=== PATIENT | female | born 1955 | race Caucasian/White ===

== ENCOUNTER 2017-08-07 09:22 | Inpatient (IN) | payer OTHER ==
[2017-07-20 15:16] LABS: % IMMATURE GRANULYOCYTES 0.4 % (0.0-1.1); ABSOLUTE IMMATURE GRANULOCYTES 0.03 10^3/uL (0.00-0.10); ADD DIFF? NO; ADD MORPH? NO; ADD SCAN? NO; ATYPICAL LYMPHOCYTE FLAG 0 (0-99); FRAGMENT RBC FLAG 0 (0-99); HEMATOCRIT 40.5 % (38.0-47.0); HEMOGLOBIN 13.4 g/dL (12.6-16.3); LEFT SHIFT FLG 0 (0-99); LIPEMIA HEMOLYSIS FLAG 80 (0-99); MEAN CELL HEMOGLOBIN 31.2 pg (27.9-34.1); MEAN CELL HEMOGLOBIN CONCENTR. 33.1 g/dL (32.4-36.7); MEAN CELL VOLUME 94.4 fL (81.5-99.8); MEAN PLATELET VOLUME 10.8 fL (8.7-11.7); PLATELET CLUMPS FLAG 0 (0-99); PLATELET COUNT 200 10^3/uL (150-400); RED BLOOD CELL COUNT 4.29 10^6/uL (4.18-5.33); RED CELL DISTRIBUTION WIDTH 11.8 % (11.5-15.2)
--- NOTE | 2017-08-09 06:51 | PDHPUP ---
History & Physical Update H&P update statement: This history and physical update is based on an assessment of the patient which was completed after admission or registration (within 24 hours), but prior to the surgery/procedure. H&P update: H&P reviewed & patient examined, no change in patient's condition since H&P completed
[2017-08-09] MEDS ORDERED: BUPIVACAINE 0.25% 30 ML SDV ONE (12:01)
[2017-08-09] MEDS ORDERED: THROMBIN (BOVINE) 5,000 UNIT VIAL TP ONE (12:01)
[2017-08-09] MEDS ORDERED: BACITRACIN 50,000 UNITS/10 ML SYR IRR ONE (12:02)
[2017-08-09] MEDS ORDERED: ceFAZolin 2 GM/DEXTROSE 100 ML IV ONE (12:15)
[2017-08-09] MEDS ORDERED: LIDOCAINE 1% 2 ML INJ ID PRN (12:16)
[2017-08-09] MEDS ORDERED: LR 1,000 ML IV ONE (12:16)
[2017-08-09] MEDS ORDERED: MIDAZOLAM 2 MG/2 ML VIAL ONE (12:41)
[2017-08-09] MEDS ORDERED: MIDAZOLAM 2 MG/2 ML VIAL IVP ONE (12:43)
--- NOTE | 2017-08-09 12:43 | PDANEPAE ---
ANE History of Present Illness TLIF L5-s1 ANE Past Medical History - Cardiovascular History Hx Hypertension: No Hx Arrhythmias: No Hx Chest Pain: No Hx Coronary Artery / Peripheral Vascular Disease: No Hx CHF / Valvular Disease: No Hx Palpitations: No Cardiovascular History Comment: SVT -no ablation-changes life style to decrease stress- no recent SVT. Dr Staley F/José Manuel '15-'16. - Pulmonary History Hx COPD: No Hx Asthma/Reactive Airway Disease: No Hx Recent Upper Respiratory Infection: No Hx Oxygen in Use at Home: No Hx Sleep Apnea: No Sleep Apnea Screening Result - Last Documented: Negative Pulmonary History Comment: pneumonia x2 - Neurologic History Hx Cerebrovascular Accident: No Hx Seizures: No Hx Dementia: No - Endocrine History Hx Diabetes: No Hypothyroid: Yes Endocrine History Comment: hypothyroid - Renal History Hx Renal Disorders: No - Liver History Hx Hepatic Disorders: No - Neurological & Psychiatric Hx Hx Neurological and Psychiatric Disorders: Yes Neurological / Psychiatric History Comment: Excruciating low back pain alternates w/stabbing pain down L buttock and nerve pain to L foot. on Lexapro - small dose to help bowel issue/"leaky gut" - Cancer History Hx Cancer: No - Congenital Disorder History Hx Congenital Disorders: No - GI History GERD: no Hx Gastrointestinal Disorders: Yes Gastrointestinal History Comment: "leaky gut" on supplements, probiotic - Other Health History Other Health History: canker sores can come w/digestive issues-none recent. - Chronic Pain History Chronic Pain: Yes (back,) - Surgical History Prior Surgeries: L knee scope '14. uterus removal '04. R knee scope '98. R knee sx-patellar tendon '. R knee manipulation'. R knee reconstruction( cast 3 mos) '73. ruptured ovarian cysts x2 '71. tonsillectomy '56 ANE Review of Systems Review of Systems: - Exercise capacity METS (RN): 4 METS ANE Patient History - Allergies Allergies/Adverse Reactions: No Known Allergies Allergy (Verified 07/18/17 11:44) - Home Medications Home Medications: Murphy Thyroid 82mg 82 mg PO DAILY 07/17/17 [Last Taken 08/09/17] Ascorbic Acid [Vitamin C 500 mg (*)] 1,000 mg PO DAILY 07/17/17 [Last Taken ] Aspirin [Aspirin 81mg (*)] 162 mg PO DAILY 07/17/17 [Last Taken 07/19/17] Biest Compounded Crm 3 gm TP DAILY 07/17/17 [Last Taken 08/08/17] Cyanocobalamin [Vitamin B12 (*)] 5,000 mcg PO DAILY 07/17/17 [Last Taken ] Escitalopram Oxalate [Lexapro] 2.5 mg PO HS 07/17/17 [Last Taken 08/08/17 20:00] Herbals/Supplements -Info Only 1 ea PO DAILY 07/17/17 [Last Taken 08/05/17] Niacin [Niacin 500 mg (*)] 500 mg PO DAILY 07/17/17 [Last Taken 08/02/17] Progesterone, Micronized [Progesterone] 100 mg PO HS 07/17/17 [Last Taken ] Testosterone Compounded Crm 1 yuri TP DAILY 07/17/17 [Last Taken 08/09/17] traMADol [Ultram 50 mg (*)] 50 - 100 mg PO Q6HRS PRN 07/17/17 [Last Taken 16:00] - Anes Hx Anes Hx: no prior problems - Smoking Hx Smoking Status: Former smoker - Family Anes Hx Family Anes Hx: none ANE Labs/Vital Signs - Labs Result Diagrams: 07/20/17 14:42 - Vital Signs Blood Pressure: 140/73 Heart Rate: 99 Respiratory Rate: 16 O2 Sat (%): 97 Height: 167.01 cm Weight: 54.431 kg ANE Physical Exam - Airway Neck exam: FROM Mallampati Score: Class 1 Mouth exam: normal dental/mouth exam - Pulmonary Pulmonary: clear to auscultation - Cardiovascular Cardiovascular: regular rate and rhythym - ASA Status ASA Status: II ANE Anesthesia Plan Anesthesia Plan: general endotracheal anesthesia
[2017-08-09] MEDS ORDERED: KETAMINE 100 MG/10 ML SYR ONE (12:45)
[2017-08-09] MEDS ORDERED: fentaNYL 100 MCG/2 ML INJ ONE ×3 (12:45→17:39)
[2017-08-09] MEDS ORDERED: PROPOFOL/EMULSION 500 MG/50 ML BOTTLE IV ONE (12:46)
[2017-08-09] MEDS ORDERED: ROCURONIUM 50 MG/5 ML VIAL ONE (12:48)
[2017-08-09] MEDS ORDERED: DEXAMETHASONE 4 MG/ML VIAL ONE (12:48)
[2017-08-09] MEDS ORDERED: traMADol 50 MG TAB PO PRN (12:56)
[2017-08-09] MEDS ORDERED: POLYETHYLENE GLYCOL 3350 17 GM PKT PO PRN (13:00)
[2017-08-09] MEDS ORDERED: HYDROmorphONE/DILAUDID 6 MG/30 ML PCA IV PRN (13:00)
[2017-08-09] MEDS ORDERED: MAGNESIUM HYDROXIDE 30 ML UDCUP PO PRN (13:00)
[2017-08-09] MEDS ORDERED: NS 1,000 ML IV SCH (13:00)
[2017-08-09] MEDS ORDERED: BISACODYL 10 MG SUPP PR PRN (13:00)
[2017-08-09] MEDS ORDERED: NALOXONE HCL 0.4 MG/ML INJ IVP PRN (13:00)
[2017-08-09] MEDS ORDERED: diphenhydrAMINE 25 MG CAP PO PRN (13:00)
[2017-08-09] MEDS ORDERED: ONDANSETRON 4 MG/2 ML VIAL IVP PRN (13:00)
[2017-08-09] MEDS ORDERED: ONDANSETRON DISINTEGRATING 4 MG TAB PO PRN (13:00)
[2017-08-09] MEDS ORDERED: LACTULOSE 20 GM/30 ML UDCUP PO PRN (13:00)
[2017-08-09] MEDS ORDERED: PHENYLEPHRINE HCL 100 MCG/ML SYR ONE (14:03)
[2017-08-09] MEDS ORDERED: PROPOFOL 200 MG/20 ML VIAL ONE (15:40)
[2017-08-09] MEDS ORDERED: ONDANSETRON 4 MG/2 ML VIAL ONE (16:27)
[2017-08-09] MEDS ORDERED: fentaNYL 100 MCG/2 ML INJ IVP PRN (17:00)
--- NOTE | 2017-08-09 17:01 | SOAPPROG ---
SOAP Progress Note Assessment/Plan: Post Op Visit: S: Awake and alert. NAD. Pt with expected lower back pain O: AFVSS/PERRLA/EOMI no droop CN 2-12 grossly intact +lt touch 5/5 BUE/BLE = CDI REZA in place A/P: 62 yo female that is s/p TLIF at L5/S1 for LLE pain and LBP -orders in place -call with any questions or concerns -pt seen by Dr Cervantes as well -admit to floor -brace when out of bed 08/09/17 16:54 Objective: Vital Signs Temp Pulse Resp BP Pulse Ox 37.3 C 99 16 140/73 H 97 08/09/17 12:32 08/09/17 12:42 08/09/17 12:42 08/09/17 12:42 08/09/17 12:42 Laboratory Results 07/20/17 14:42 ICD10 Worksheet Patient Problems: Problems Problem Status Onset Arthrodesis status Acute Lumbar radicular pain Acute Lumbar stenosis Acute - ICD10 Problem Qualifiers (1) Lumbar stenosis (2) Lumbar radicular pain (3) Arthrodesis status
[2017-08-09] MEDS ORDERED: HYDROmorphONE/DILAUDID 1 MG/ML INJ ONE ×2 (17:05→17:40)
[2017-08-09] MEDS: HYDROmorphONE/DILAUDID 1 MG/ML INJ IVP PRN ×4 (17:06→18:12)
--- NOTE | 2017-08-09 17:48 | POSTANESTH ---
Post Anesthetic Evaluation Cardiovascular Status: Normal, Stable Respiratory Status: Normal, Stable Level of Consciousness/Mental Status: Can Participate in Eval Pain Control: Adequate, Prn Tx Ordered Nausea/Vomiting Control: Adequate, Prn Tx Ordered Complications Possibly Related to Anesthesia: None Noted
[2017-08-09] MEDS ORDERED: HYDROCODONE/APAP 5/325 TAB ONE (18:14)
[2017-08-09] MEDS: HYDROCODONE/APAP 5/325 TAB PO PRN ×3 (18:14→22:57)
[2017-08-09] MEDS: SENNOSIDES/DOCUSATE SODIUM TAB PO SCH (20:23)
[2017-08-09] MEDS: PROGESTERONE,MICR 100 MG CAP PO SCH (20:23)
[2017-08-09] MEDS: FAMOTIDINE 20 MG TAB PO SCH (20:23)
[2017-08-09] MEDS: ACETAMINOPHEN 500 MG TAB PO SCH ×2 (20:28→23:27)
[2017-08-09] MEDS: ESCITALOPRAM OXALATE 5 MG PO SCH (22:49)
[2017-08-09] MEDS: ceFAZolin 2 GM/DEXTROSE 100 ML IV SCH (22:50)
[2017-08-09] MEDS: METHOCARBAMOL 750 MG TAB PO PRN (22:58)
--- NOTE | 2017-08-10 04:24 | GOP ---
[f rep st] OPERATIVE REPORT DATE OF OPERATION: 08/09/2017 SURGEON: Bear Cervantes MD SHADOWGRAPH SCALE OPERATOR: Cain Prajapati PA-C. PREOPERATIVE DIAGNOSIS: Left-sided pars interarticularis defect i.e., spondylolisthesis of L5 on the left with a rotational spondylolisthesis of L5 on S1, left L5 radiculopathy. POSTOPERATIVE DIAGNOSIS: Left-sided pars interarticularis defect i.e., spondylolisthesis of L5 on th e left with a rotational spondylolisthesis of L5 on S1, left L5 radiculopathy. PROCEDURE PERFORMED: Posterior lateral and intervertebral arthrodesis L5-S1 with resection of the ab normal pars interarticularis on the left-hand side only. The right-hand pars was intact, with decomp ression and arthrodesis same level L5-S1 (52666), posterior nonsegmental instrumentation across a sin gle interspace L5-S1 (92921), spinal stereotaxy, same incision bone graft harvest, microscope, placem ent of biomechanical intervertebral device L5-S1, utilization of 2.0 mg of bone morphogenic protein. FINDINGS: ESTIMATED BLOOD LOSS: 100 cc. INDICATIONS: The patient is a 62-year-old with chronic low back pain and radiating pain into the lef t leg in an L5 distribution. Imaging demonstrated a defect in the left L5 pars interarticularis with a rotational spondylolisthesis that was worse on the left than on the right at that level. The righ t-sided pars interarticularis appeared to be intact. She had left-sided symptoms only. She failed c onservative management and was having worsening pain disrupting her activities of daily living, and s he wanted to proceed with surgery. The risk of screw and hardware malposition and malfunction were d iscussed. She knew there was risk of ongoing symptoms and chronic nerve damage. She knew there was risk that surgery would fail to alleviate her pain. There was a risk of pseudoarthrosis, future spin e surgery, revision spine surgery, spinal fluid leak. 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 These were well-known to us preoperatively, and these had the slight possibility of increasing her risk of spinal fluid leak. She wanted to proceed despite the risks. DESCRIPTION OF PROCEDURE: The patient was taken the operating room, placed in supine position. Gene ral anesthesia was begun. She was sterilely prepped and draped. We made a midline incision after an esthetizing the paraspinal muscles with 0.25% Marcaine. The subcutaneous tissue was dissected using Bovie cautery. Our incision was somewhat longer than it would normally be. We exposed the transvers e process of L4 and then L5. We wanted to stay away from the sacrum itself because the sacrum, and a large exophytic Tarlov cyst coming through the dorsal portion of the sacrum, and it was unclear whet her the bone was intact in this region. We wanted to avoid the cyst. We only exposed the very rostr al arch of the sacrum itself. We shot many localizing x-rays as we got close to the sacrum to ensure we were in the right location. We then denuded the bilateral L5-S1 facet joints to create arthrodes is on the left-hand side. We could appreciate the pars defect on the left. The pars on the right ap peared to be intact. We then marked our entry site for pedicle screws and decorticated the transvers e processes of L5 and the sacral ala. We then used a tested Stealth reference frame and then perform ed an O-arm spin. Using frameless Stealth stereotaxy, we placed pedicle screws bilaterally at the sa gina and at L5. We used 6.5 mm screws in each location. The pedicle trajectories were rather short, but we were able to get screws into the pedicles without difficulty. On the right-hand side; emiliano r, the right L5 pedicle there was a lot of cortical bone, and I felt that we could begin the screw so mewhat more medial on the right-hand side, and use this cortical bone for greater bony purchase. In this instance, I felt a 5.5 mm screw was advisable. We drilled a small airline pilot hole, and on the right- hand side at L5 alone, we used the spinal probe to make our airline pilot hole as opposed to the other ones w here we used the power drill. Here, we did it an old fashioned way using stealth guidance. There wa s an excellent cortical tract through the pedicle. We then placed 4 pedicle screws without difficult y. The all stimulated at acceptable levels. We performed an O-arm spin, and they were all in excell ent position without breach of the pedicles themselves. We chose 30 mm rods, placed them down on eac h side. Distracted slightly between L5 and S1, and this reduced the spondylolisthesis 1 mm or 2. We final tightened the cap screws according to company specification. We did not radically distract at L5-S1. We removed all the soft tissue of the bone from L5, harvested the L5 inferior spinous proces s. We then drilled the left L5 lamina completely away and harvested this for autologous grafting pur poses. The operating microscope was introduced. We opened the ligamentum flavum and began working c entrally, and then worked our way to the left-hand side at L5-S1 and in the foramen. The S1 nerve ro ot was identified. We decompressed the S1 root, and then worked our way over from the S1 pedicle off into the foramen and out toward the L5 pedicle. There was indeed a pars defect. We removed the abn ormal pars interarticularis. We decorticated the bone on the other side of the defect at the site of the L5 pedicle itself. There was like an isthmic spondylolisthesis. There was an isthmus of bone a nd tissue over the L5 root, and it was indeed being completely crushed. We used a 3 mm Kerrison to r emove this shelf of bone over the 5 root, and this released the nerve root. We decompressed it all t he way into the neural foramen. Then interestingly coming out of the L5-S1 disk was a chronic large bone spur out in the neural foramen. This is also seen on our O-arm spin, and could be seen on the M RI as well, but it was more clearly calcified on the O-arm spin. We incised the L5-S1 disk, removed the disk and the cartilaginous endplates. We roughened the subchondral bone to create arthrodesis at L5-S1, but then we spent additional time decompressing the exiting L5 root. We protected the root w ith a ball-tipped probe, and then took a down-biting curette, and then using a mallet we fractured th is large osteophyte coming off the L5 vertebral body, down into the L5-S1 disk, and removed this larg e bony fragment. We then decorticated the subchondral bone for our arthrodesis and chose a 7 x 23 mm device after sizing it with our trial. We inserted a 7 x 23 mm device along with bone autograft, an d we used 1.0 mg of BMP in the disk space. A nice fit was obtained. We expanded our device in the L 5-S1 disk space and it seated quite nicely. We then decorticated all the remaining bone at L5-S1 to create arthrodesis. Placed bone and bone morphogenic protein posterolaterally bilaterally. A total of 1 mg was placed posterior laterally, followed by bone autograft. We then placed a subfascial drai n, and then closed the incision in multiple layers using Vicryl sutures. Steri-Strips were applied t o the skin. The patient was reversed from anesthesia, extubated, and transferred to recovery room in stable condition. There were no complications. She tolerated the procedure well. COMPLICATIONS: None. INSTRUMENTATION USED: [employer] 4.75 mm Solera system with a 7 x 23 mm Elevate cage. We used 2.0 mg of bone morphogenic protein. /[id number]/MODL
[2017-08-10] MEDS: METHOCARBAMOL 750 MG TAB PO PRN ×3 (04:39→14:15)
[2017-08-10] MEDS: ceFAZolin 2 GM/DEXTROSE 100 ML IV SCH (04:39)
[2017-08-10] MEDS: HYDROCODONE/APAP 5/325 TAB PO PRN ×2 (04:39→08:42)
[2017-08-10] MEDS: ACETAMINOPHEN 500 MG TAB PO SCH ×3 (04:43→22:47)
[2017-08-10] MEDS ORDERED: DIAZEPAM 5 MG TAB PO PRN (08:13)
--- NOTE | 2017-08-10 08:18 | NEUSURGPN ---
Date of Surgery: 08/09/17 Post Op Day: 1 Assessment/Plan: Assessment: 62 yo female that is s/p TLIF at L5/S1 for LLE pain and LBP Plan: -s/p TLIF L5/S1-pt with some lower back pain, LLE better -REZA in place and to be removed later today -PT/OT ordered and pending -brace fit and to wear when out of bed -call with any questions or concerns -post op xrays pending -pt seen by Dr Cervantes as well -plan for dc in next 1-2 days 08/09/17 16:54 Subjective: Awake and alert. NAD. Eating/drinking and voiding. No f/c/n/v/d. No other complaints or concerns. Objective: AFVSS/PERRLA/EOMI no droop CN 2-12 grossly intact +lt touch 5/5 BUE/BLE = CDI REZA in place Neuro Check Frequency: per routine Urinary Catheter in Place: No - Physician Discussed Patient with Dr.: Billy Patient Seen by : Billy Neurosurgery Physical Exam - Vitals, I&O, Labs I and O 08/09/17 08/10/17 08/11/17 05:59 05:59 05:59 Intake Total 2220 Output Total 2340 Balance -120 Weight 54.431 kg Intake: IV Intake (ml) 1000 IV Infused (ml) 1220 Ns 1,000 ml @ 100 mls/hr 1000 IV CONT LOLA Rx#: [id number] ceFAZolin 2 GM/DEXTROSE 220 100 ml @ 200 mls/hr IV Q8HRS LOLA Rx#:[id number] Output: Urine (ml) 2125 Bedside Commode 2125 Estimated Blood Loss (ml) 100 REZA Drain Output (ml) 115 Left Back [place] 115 Other: Intake Quantity Yes Sufficient Number of Voids Bedside Commode 1 Vital Signs Temp Pulse Resp BP Pulse Ox 37.1 C 94 16 121/70 H 96 08/10/17 07:11 08/10/17 07:11 08/10/17 07:11 08/10/17 07:11 08/10/17 07:11 Laboratory Results 07/20/17 14:42 ICD10 Worksheet Patient Problems: Problems Problem Status Onset Arthrodesis status Acute Lumbar radicular pain Acute Lumbar stenosis Acute - ICD10 Problem Qualifiers (1) Lumbar stenosis (2) Lumbar radicular pain (3) Arthrodesis status
[2017-08-10] MEDS: SENNOSIDES/DOCUSATE SODIUM TAB PO SCH ×2 (09:39→20:19)
[2017-08-10] MEDS: NIACIN 500 MG TAB PO SCH (09:39)
[2017-08-10] MEDS: FAMOTIDINE 20 MG TAB PO SCH ×2 (09:43→20:19)
[2017-08-10] MEDS: CYANO/VITAMIN B12 1000 MCG TAB PO SCH (09:43)
[2017-08-10] MEDS: THYROID PO SCH (09:44)
[2017-08-10] MEDS: [UNRECOGNIZED DRUG - OTHER] TP SCH (09:45)
[2017-08-10] MEDS: [UNRECOGNIZED DRUG - OTHER] TP SCH (09:45)
--- NOTE | 2017-08-10 14:13 | ASMTCMCOM ---
CM Note CM Note Notes: Pt had planned spinal surgery. OT/PT clear pt for home. No CM d/c needs identified at this time. Anticipate pt will d/c when medically stable. CM available for changes/needs. Date Signed: 08/10/2017 02:12 PM Electronically Signed By:LAKSHMI Mondragon
[2017-08-10] MEDS: oxyCODONE IR 5 MG TAB PO PRN ×2 (14:14→20:20)
[2017-08-10] MEDS: PROGESTERONE,MICR 100 MG CAP PO SCH (20:19)
[2017-08-10] MEDS: ESCITALOPRAM OXALATE 5 MG PO SCH (20:19)
[2017-08-11] MEDS: ACETAMINOPHEN 500 MG TAB PO SCH (06:13)
[2017-08-11] MEDS: oxyCODONE IR 5 MG TAB PO PRN ×2 (06:14→10:48)
[2017-08-11] MEDS: METHOCARBAMOL 750 MG TAB PO PRN (06:14)
[2017-08-11 07:13] VITALS: BP 109/51; PULSE 78; RESP 16; TEMP 99; O2SAT 92
[2017-08-11] MEDS: SENNOSIDES/DOCUSATE SODIUM TAB PO SCH (08:28)
[2017-08-11] MEDS: FAMOTIDINE 20 MG TAB PO SCH (08:29)
[2017-08-11] MEDS: CYANO/VITAMIN B12 1000 MCG TAB PO SCH (08:29)
[2017-08-11] MEDS: THYROID PO SCH (08:30)
[2017-08-11] MEDS: [UNRECOGNIZED DRUG - OTHER] TP SCH (08:31)
[2017-08-11] MEDS: [UNRECOGNIZED DRUG - OTHER] TP SCH (08:31)
[2017-08-11] MEDS: NIACIN 500 MG TAB PO SCH (08:32)
--- NOTE | 2017-08-11 08:43 | NEUSURGPN ---
Date of Surgery: 08/09/17 Post Op Day: 2 Assessment/Plan: Assessment: 62 yo female that is s/p TLIF at L5/S1 for LLE pain and LBP Plan: -Patient may discharge home later today pending PT/OT recommendations -PT/OT -Wear brace when out of bed -post op xrays stable -pt seen by Dr Cervantes as well -Call with any questions/concerns Subjective: Patient feeling pretty good Objective: PERRLA/EOMI no droop CN 2-12 grossly intact +lt touch 5/5 BUE/BLE = CDI Neuro Check Frequency: per routine Urinary Catheter in Place: No - Physician Discussed Patient with Dr.: Billy Patient Seen by : Billy Neurosurgery Physical Exam - Vitals, I&O, Labs I and O 08/10/17 08/11/17 08/12/17 05:59 05:59 05:59 Intake Total 2220 1210 Output Total 2340 660 Balance -120 550 Weight 54.431 kg Intake: Oral (ml) 1210 IV Intake (ml) 1000 IV Infused (ml) 1220 Ns 1,000 ml @ 100 mls/hr 1000 IV CONT LOLA Rx#: [id number] ceFAZolin 2 GM/DEXTROSE 220 100 ml @ 200 mls/hr IV Q8HRS LOLA Rx#:[id number] Output: Urine (ml) 2125 600 Bedside Commode 2125 600 Estimated Blood Loss (ml) 100 REZA Drain Output (ml) 115 60 Left Back [place] 115 60 Other: Intake Quantity Yes Yes Sufficient Number of Voids Bedside Commode 1 1 Number of Stools Bedside Commode 1 Vital Signs Temp Pulse Resp BP Pulse Ox 37.2 C 78 16 109/51 L 92 08/11/17 07:11 08/11/17 07:11 08/11/17 07:11 08/11/17 07:11 08/11/17 07:11 Laboratory Results 07/20/17 14:42 ICD10 Worksheet Patient Problems: Problems Problem Status Onset Arthrodesis status Acute Lumbar radicular pain Acute Lumbar stenosis Acute
--- NOTE | 2017-08-11 16:20 | ASDISCHSUM ---
Discharge Information Plan Status:Home with No Needs Medically Cleared to Leave: Discharge Date:08/11/2017 12:10 PM CM D/C Disposition:Home, Routine, Self-Care ADT D/C Disposition:Home, Routine, Self-Care Projected Discharge Date:08/11/2017 12:10 PM Transportation at D/C: Discharge Delay Reason: Follow-Up Date:08/11/2017 12:10 PM Discharge Slot: Final Diagnosis: Placement Information Patient Contact Information Contact Name:MARILYN Relationship: Address:[address] Work Phone: City:[place] Alternate Phone: [facility]/Zip Code:[place] [address] Email: Financial Information Financial Class:HMO and PPO Plans Primary Plan Desc:[employer] [place] [employer] Primary Plan Number:[id number] Secondary Plan Desc: Secondary Plan Number: Assessment Information [facility] CM Progress Note CM Note CM Note Notes: Pt had planned spinal surgery. OT/PT clear pt for home. No CM d/c needs identified at this time. Anticipate pt will d/c when medically stable. CM available for changes/needs. Date Signed: 08/10/2017 02:12 PM Electronically Signed By:LAKSHMI Mondragon Intervention Information
[2017-08-12] MEDS ORDERED: ENOXAPARIN 40 MG/0.4 ML SYR SC SCH (09:00)
== END 2017-08-11 12:10 | disposition home or self-care (01) | DRG 460 ==
LOC: F3N 08-09 11:34
PROVIDERS: ADMIT Neurological Surgery; ATTEND Neurological Surgery
PROC: 3E0V0GB Introduction of Recombinant Bone Morphogenetic Protein into Bones, Open Approach (ICD-10-PCS; principal; 2017-08-09 13:30)
PROC: 0QS004Z Reposition Lumbar Vertebra with Internal Fixation Device, Open Approach (ICD-10-PCS; principal; 2017-08-09 13:30)
PROC: 0SG30A1 (ICD-10-PCS; principal; 2017-08-09 13:30)
PROC: 0SG30AJ Fusion of Lumbosacral Joint with Interbody Fusion Device, Posterior Approach, Anterior Column, Open Approach (ICD-10-PCS; principal; 2017-08-09 13:30)
PROC: 0QB00ZZ Excision of Lumbar Vertebra, Open Approach (ICD-10-PCS; principal; 2017-08-09 13:30)
PROC: 00NY0ZZ Release Lumbar Spinal Cord, Open Approach (ICD-10-PCS; principal; 2017-08-09 13:30)
PROC: 4A10X4G Monitoring of Central Nervous Electrical Activity, Intraoperative, External Approach (ICD-10-PCS; principal; 2017-08-09 13:30)
PROC: 8E0WXBZ Computer Assisted Procedure of Trunk Region (ICD-10-PCS; principal; 2017-08-09 13:30)
DX: M43.16 Spondylolisthesis, lumbar region (principal); M47.27 Other spondylosis with radiculopathy, lumbosacral region; M48.06 Spinal stenosis, lumbar region; M71.38 Other bursal cyst, other site
CPT/HCPCS: 97116-GP; 97161-GP; 97165-GO; 97535-GO; C1713; J0171; J0690; J1100; J1170; J2250; J2370; J2405; J2704; J3010

== ENCOUNTER → 2017-10-02 | Outpatient (CLI) | payer OTHER | LOC: FIMAGING 12:20 | PROVIDERS: ATTEND Nurse Practitioner | DX: Z09 Encounter for follow-up examination after completed treatment for conditions other than malignant neoplasm (principal); Z98.1 Arthrodesis status ==

== ENCOUNTER → 2017-10-19 | Outpatient (CLI) | payer OTHER | LOC: BRMIMAGING 14:24 | PROVIDERS: ATTEND Nurse Practitioner Family | DX: Z13.820 Encounter for screening for osteoporosis (principal); M85.80 Other specified disorders of bone density and structure, unspecified site ==

== ENCOUNTER → 2017-12-06 | Outpatient (CLI) | payer OTHER | LOC: FIMAGING 15:16 | PROVIDERS: ATTEND Nurse Practitioner | DX: M54.16 Radiculopathy, lumbar region (principal); Z98.1 Arthrodesis status ==

== ENCOUNTER → 2018-03-12 | Outpatient (CLI) | payer OTHER | LOC: FIMAGING 13:44 | PROVIDERS: ATTEND Physician Assistant | DX: Z98.1 Arthrodesis status (principal) ==

== ENCOUNTER → 2018-09-10 | Outpatient (CLI) | payer OTHER | LOC: FIMAGING 12:22 | PROVIDERS: ATTEND Physician Assistant | DX: Z98.1 Arthrodesis status (principal) ==

== ENCOUNTER → 2018-10-22 | Outpatient (CLI) | payer OTHER | LOC: FIMAGING 14:20 | PROVIDERS: ATTEND Physician Assistant | DX: M51.36 Other intervertebral disc degeneration, lumbar region (principal); M43.17 Spondylolisthesis, lumbosacral region; G96.19 Other disorders of meninges, not elsewhere classified; M41.9 Scoliosis, unspecified; I70.0 Atherosclerosis of aorta; Z98.1 Arthrodesis status ==

== ENCOUNTER 2018-12-18 18:40 | Emergency (ER) | payer OTHER ==
[2018-12-18] MEDS ORDERED: NS 1,000 ML IV ONE (19:09)
--- NOTE | 2018-12-18 19:11 | EDPHY ---
H & P Stated Complaint: tachycardia Time Seen by Provider: 12/18/18 19:04 HPI/ROS: CHIEF COMPLAINT: Palpitations HISTORY OF PRESENT ILLNESS: The patient presents to the ED with complaints of palpitations that began at approximately 1:00 a.m. Today. The patient reportedly had a steroid injection into her sacroiliac joint. The patient has a history of PSVT. She has has not required recent chemical cardioversion. She has no complaints of chest pain or shortness of breath but has felt ongoing tachycardia since 1:00 a.m. Today. The patient denies any fever, cough or congestion. She denies any pleuritic chest pain. She denies asymmetric calf pain or swelling. Patient is having pain in the area of her left sacroiliac joint and is requesting to take her regular tramadol. REVIEW OF SYSTEMS: A comprehensive 10 point review of systems is otherwise negative aside from elements mentioned in the history of present illness. Source: Patient Exam Limitations: No limitations - Personal History Current Tetanus/Diphtheria Vaccine: Unsure Current Tetanus Diphtheria and Acellular Pertussis (TDAP): Unsure - Medical/Surgical History Hx Asthma: No Hx Chronic Respiratory Disease: No Hx Diabetes: No Hx Cardiac Disease: Yes Hx Renal Disease: No Hx Cirrhosis: No Hx Alcoholism: No Hx HIV/AIDS: No Hx Splenectomy or Spleen Trauma: No Other PMH: SVT, Hypothyroid, L5-S1 fusion, MVP, - Social History Smoking Status: Former smoker - Physical Exam Exam: General Appearance: Alert, no distress Eyes: Pupils equal and round no pallor or injection ENT, Mouth: Mucous membranes moist Respiratory: There are no retractions, lungs are clear to auscultation Cardiovascular: Tachycardic, regular rhythm Gastrointestinal: Abdomen is soft and nontender, no masses, bowel sounds normal Neurological: A&O, normal motor function, normal sensory exam, normal cranial nerves Skin: Warm and dry, no rashes Musculoskeletal: Neck is supple nontender Extremities: symmetrical, full range of motion Psychiatric: Patient is oriented X 3, there is no agitation Constitutional: Initial Vital Signs Temperature (C) 36.8 C 12/18/18 18:50 Heart Rate 123 H 12/18/18 18:50 Respiratory Rate 16 12/18/18 18:50 Blood Pressure 156/98 H 12/18/18 18:50 O2 Sat (%) 98 12/18/18 18:50 O2 Delivery Mode Room Air Allergies/Adverse Reactions: diclofenac Allergy (Verified 12/18/18 18:46) meloxicam Allergy (Verified 12/18/18 18:46) Home Medications: Medication Instructions Recorded [place] Thyroid 82mg 82 mg PO DAILY 07/17/17 Ascorbic Acid [Vitamin C 500 mg 1,000 mg PO DAILY 07/17/17 (*)] Aspirin [Aspirin 81mg (*)] 162 mg PO DAILY 07/17/17 Biest Compounded Crm 3 gm TP DAILY 07/17/17 Cyanocobalamin [Vitamin B12 (*)] 5,000 mcg PO DAILY 07/17/17 Escitalopram Oxalate [Lexapro] 2.5 mg PO HS 07/17/17 Herbals/Supplements -Info Only 1 ea PO DAILY 07/17/17 Niacin [Niacin 500 mg (*)] 500 mg PO DAILY 07/17/17 Progesterone, Micronized 100 mg PO HS 07/17/17 [Progesterone] Testosterone Compounded Crm 1 yuri TP DAILY 07/17/17 Acetaminophen [Tylenol ES 500 mg 1,000 mg PO Q8HRS tab 08/11/17 (*)] Methocarbamol [Robaxin 750 mg (*)] 750 mg PO QID PRN tab 08/11/17 Sennosides/Docusate Sodium 1 - 2 tab PO BID tab 08/11/17 [Senokot-S] Estrogens,Esterified 12/18/18 Gabapentin 12/18/18 Hydrocodone-Acetamin 5-217/10 12/18/18 traMADol 12/18/18 Medical Decision Making - Diagnostics EKG Interpretation: EKG: Complete interpretation has been separately recorded in the [facility] archive. Summary impression: Sinus tachycardia, rate 120, nonspecific ST T wave changes noted ED Course/Re-evaluation: The patient presents the emergency department with complaints of palpitations following injection. The patient does have a history of SVT. The patient was noted to have a sinus tachycardia with a heart rate of 120. Patient has no complaints of chest pain or shortness of breath. She is having pain following her sacroiliac injection. Patient was given her tramadol in the emergency department. She received a L of normal saline. Her heart rate normalized. She has no evidence of a metabolic derangement, elevated troponin or ischemic EKG. She has no evidence of a critical anemia. I re-evaluated the patient at 8:00 p.m.. She is currently feeling better would like to be discharged home. She has been instructed to return to the ED for any chest pain, difficulty breathing, recurrent symptoms or other concerns. Differential Diagnosis: Differential diagnosis considered includes SVT, atrial fibrillation, dehydration , metabolic abnormality - Data Points Laboratory Results: Laboratory Results 12/18/18 19:17 12/18/18 19:17 12/18/18 12/18/18 12/18/18 19:20 19:17 19:17 WBC 5.70 10^3/uL 10^3/uL (3.80-9.50) RBC 5.13 10^6/uL 10^6/uL (4.18-5.33) Hgb 16.0 g/dL g/dL (12.6-16.3) Hct 48.3 % H % (38.0-47.0) MCV 94.2 fL fL (81.5-99.8) MCH 31.2 pg pg (27.9-34.1) MCHC 33.1 g/dL g/dL (32.4-36.7) RDW 12.1 % % (11.5-15.2) Plt Count 235 10^3/uL 10^3/uL (150-400) MPV 9.8 fL fL (8.7-11.7) Neut % (Auto) Pending Lymph % (Auto) Pending [place] % (Auto) Pending Eos % (Auto) Pending Baso % (Auto) Pending Nucleat RBC Rel Count Pending Absolute Neuts (auto) Pending Absolute Lymphs (auto) Pending Absolute Monos (auto) Pending Absolute Eos (auto) Pending Absolute Basos (auto) Pending Absolute Nucleated RBC Pending Immature Gran % Pending Immature Gran # Pending Platelet Estimate Pending Sodium 131 mEq/L L mEq/L (135-145) Potassium 4.0 mEq/L mEq/L (3.5-5.2) Chloride 99 mEq/L mEq/L (97-110) Carbon Dioxide 24 mEq/l mEq/l (22-31) Anion Gap 8 mEq/L mEq/L (6-14) BUN 12 mg/dL mg/dL (7-23) Creatinine 0.6 mg/dL mg/dL (0.6-1.0) Estimated GFR > 60 Glucose 159 mg/dL H mg/dL (70-100) Calcium 9.2 mg/dL mg/dL (8.5-10.4) POC Troponin I 0.00 ng/mL ng/mL (0.00-0.08) Medications Given: Discontinued Medications Sodium Chloride (Ns) 1,000 mls @ 0 mls/hr IV EDNOW ONE; Wide Open PRN Reason: Protocol Stop: 12/18/18 19:10 Last Admin: 12/18/18 19:17 Dose: 1,000 mls Point of Care Test Results: Chemistry 12/18/18 19:20 POC Troponin I 0.00 ng/mL ng/mL (0.00-0.08) Departure - Departure Disposition: Home, Routine, Self-Care Clinical Impression: Palpitations Condition: Good Instructions: Heart Palpitations (ED) Additional Instructions: 1. There is no evidence of a SVT in the emergency department today. 2. Your EKG and laboratory testing are within normal limits. 3. I do believe your elevated heart rate may have been mediated by pain earlier today. It is possible you had an SVT which resolved. 4. Return to the emergency department for any recurrent cardiac symptoms, chest pain, difficulty breathing or other concerns. 5. Please follow-up with your primary care provider as scheduled. Referrals: CHLOE ZAMORA [Primary Care Provider] - As per Instructions
[2018-12-18 19:39] LABS: PLATELET COUNT 235 10^3/uL (150-400)
--- NOTE | 2018-12-18 19:49 | CPEKG ---
Test Reason : OPEN Blood Pressure : / mmHG Vent. Rate : 121 BPM Atrial Rate : 123 BPM P-R Int : 167 ms QRS Dur : 092 ms QT Int : 310 ms P-R-T Axes : 087 051 -75 degrees QTc Int : 440 ms Sinus tachycardia LAE, consider biatrial enlargement Borderline T abnormalities, inferior leads Confirmed by Lele Jeronimo ([id number]) on 12/18/2018 7:48:47 PM Referred By: Lele Jeronimo Confirmed By:Lele Jeronimo
[2018-12-18 20:25] VITALS: BP 138/89
== END 2018-12-18 20:23 | disposition home or self-care (01) ==
DX: R00.2 Palpitations (principal); E86.9 Volume depletion, unspecified
CPT/HCPCS: 84484-ER

== ENCOUNTER 2019-02-19 08:06 | Day surgery (SDC) | payer OTHER ==
[2019-02-19] MEDS ORDERED: ACETAMINOPHEN 500 MG TAB PO ONE (08:25)
[2019-02-19] MEDS ORDERED: ceFAZolin 2 GM/DEXTROSE 100 ML IV ONE (08:25)
[2019-02-19] MEDS ORDERED: GABAPENTIN 300 MG CAP PO ONE (08:25)
[2019-02-19] MEDS ORDERED: LR 1,000 ML IV ONE (09:00)
[2019-02-19] MEDS ORDERED: LIDOCAINE 1% 2 ML INJ ID PRN (09:00)
[2019-02-19] MEDS ORDERED: BACITRACIN 50,000 UNITS/10 ML SYR IRR ONE (09:05)
[2019-02-19] MEDS ORDERED: CHLORHEXIDINE GLUC HIBICLENS 118 ML BTL TP ONE (09:05)
[2019-02-19] MEDS ORDERED: BUPIVACAINE/EPI 0.25% 30 ML SDV ONE (09:05)
[2019-02-19] MEDS ORDERED: SURGIFLO MATRIX KIT WITH THROMBIN 8 ML TP ONE ×2 (09:05→10:12)
--- NOTE | 2019-02-19 09:27 | PDHPUP ---
History & Physical Update H&P update statement: This history and physical update is based on an assessment of the patient which was completed after admission or registration (within 24 hours), but prior to the surgery/procedure. H&P update: H&P reviewed & patient examined, no change in patient's condition since H&P completed (Consents signed and site marked. All questions answered.)
[2019-02-19] MEDS ORDERED: MIDAZOLAM 2 MG/2 ML VIAL IVP ONE (09:50)
--- NOTE | 2019-02-19 09:51 | PDANEPAE ---
ANE Past Medical History - Cardiovascular History Hx Hypertension: No Hx Arrhythmias: Yes Hx Chest Pain: No Hx Coronary Artery / Peripheral Vascular Disease: No Hx CHF / Valvular Disease: Yes Hx Palpitations: No Cardiovascular History Comment: INTERMITTENT PSVT - Pulmonary History Hx COPD: No Hx Asthma/Reactive Airway Disease: No Hx Recent Upper Respiratory Infection: No Hx Oxygen in Use at Home: No Hx Sleep Apnea: No Sleep Apnea Screening Result - Last Documented: Negative Pulmonary History Comment: pneumonia x2 - Neurologic History Hx Cerebrovascular Accident: No Hx Seizures: No Hx Dementia: No - Endocrine History Hx Diabetes: No Endocrine History Comment: hypothyroid - Renal History Hx Renal Disorders: No - Liver History Hx Hepatic Disorders: No - Neurological & Psychiatric Hx Hx Neurological and Psychiatric Disorders: No Neurological / Psychiatric History Comment: Excruciating low back pain alternates w/stabbing pain down L buttock and nerve pain to L foot. on Lexapro - small dose to help bowel issue/"leaky gut" - Cancer History Hx Cancer: No - Congenital Disorder History Hx Congenital Disorders: No - GI History Hx Gastrointestinal Disorders: Yes Gastrointestinal History Comment: "leaky gut" on supplements, probiotic - Other Health History Other Health History: COMPRESSION LOWER LUMBAR - Chronic Pain History Chronic Pain: Yes (SI JOINT) - Surgical History Prior Surgeries: TLIF 08/12/17. L knee scope '14. uterus removal '04. R knee scope '98. R knee sx-patellar tendon '81. R knee manipulation'74. R knee reconstruction(cast 3 mos) '73. ruptured ovarian cysts x2 '71. tonsillectomy ' 56 ANE Review of Systems Review of Systems: - Exercise capacity METS (RN): 4 METS ANE Patient History - Allergies Allergies/Adverse Reactions: diclofenac Allergy (Verified 02/07/19 15:50) INCREASED HEART RATE meloxicam Allergy (Verified 02/07/19 15:50) INCREASED HEART RATE EGGPLANT Allergy (Uncoded 02/07/19 15:51) LOSS OF VOICE - Home Medications Home Medications: [place] Thyroid 82mg 82 mg PO DAILY 07/17/17 [Last Taken 02/19/19 07:05] Ascorbic Acid [Vitamin C 500 mg (*)] 1,000 mg PO DAILY 07/17/17 [Last Taken ] Biest Compounded Crm 3 gm TP DAILY 07/17/17 [Last Taken 02/09/19] Cyanocobalamin [Vitamin B12 (*)] 5,000 mcg PO DAILY 07/17/17 [Last Taken ] Escitalopram Oxalate [Lexapro] 2.5 mg PO HS 07/17/17 [Last Taken 02/18/19] Herbals/Supplements -Info Only 1 ea PO DAILY 07/17/17 [Last Taken 02/09/19] Niacin [Niacin 500 mg (*)] 500 mg PO DAILY 07/17/17 [Last Taken 02/09/19] Progesterone, Micronized [Progesterone] 100 mg PO HS 07/17/17 [Last Taken ] Testosterone Compounded Crm 1 yuri TP HS 07/17/17 [Last Taken 02/18/19] Gabapentin HS 12/18/18 [Last Taken 02/18/19] traMADol QID 12/18/18 [Last Taken 02/18/19] Estradiol [Estrogel] 02/19/19 [Last Taken 02/18/19] - NPO status NPO Since - Liquids (Date): 02/18/19 NPO Since - Liquids (Time): 21:30 NPO Since - Solids (Date): 02/18/19 NPO Since - Solids (Time): 21:30 - Smoking Hx Smoking Status: Former smoker ANE Labs/Vital Signs - Vital Signs Blood Pressure: 127/79 Heart Rate: 88 Respiratory Rate: 15 O2 Sat (%): 97 Height: 165.1 cm Weight: 52.617 kg ANE Physical Exam - Airway Neck exam: FROM Mallampati Score: Class 1 Mouth exam: normal dental/mouth exam - Pulmonary Pulmonary: no respiratory distress - Cardiovascular Cardiovascular: regular rate and rhythym - ASA Status ASA Status: II (hx svt) ANE Anesthesia Plan Anesthesia Plan: general endotracheal anesthesia
[2019-02-19] MEDS ORDERED: MIDAZOLAM 2 MG/2 ML VIAL ONE (09:54)
[2019-02-19] MEDS ORDERED: fentaNYL 100 MCG/2 ML INJ ONE ×4 (09:57→12:05)
[2019-02-19] MEDS ORDERED: PROPOFOL/EMULSION 500 MG/50 ML BOTTLE IV ONE (09:57)
[2019-02-19] MEDS ORDERED: TRANEXAMIC ACID 1,000 MG in NS 100 ML IV ONE (10:21)
--- NOTE | 2019-02-19 11:11 | POSTOPPROG ---
Post Op Note Date of Operation: 02/19/19 Surgeon: Armen Leung Air Technician: Joaquina Herzog NP Anesthesiologist: Dr Bhatt Anesthesia: GET(General Endotracheal) Pre-op Diagnosis: Left SI dysfunction Procedure: Left SI joint fusion Inf/Abcess present in the surg proc area at time of surgery?: No Depth: Deep Incisional (Fascial) EBL: Minimal Total fluids administered: see anesthesia Complications: none Bowel Protocol: N/A Clean Closure Performed: N/A Date of Surgery: 02/19/19 Post Op Day: 0 Assessment/Plan: Assessment: 63 yr old female s/p left SI joint fusion Plan: Portable A/P xray pelvis in PACU Discharge home when criteria met Subjective: waking up in pacu Objective: waking up in pacu [place] x4 No facial droop Incision x2 CDI with dressing Appropriate Neuro Check Frequency Ordered: Yes
--- NOTE | 2019-02-19 11:13 | POSTANESTH ---
Post Anesthetic Evaluation Cardiovascular Status: Similar to Pre-Op Cond Respiratory Status: Similar to Pre-op Cond. Level of Consciousness/Mental Status: Mildly Sleepy, Arousable Pain Control: Adequate, Prn Tx Ordered Nausea/Vomiting Control: Adequate, Prn Tx Ordered Complications Possibly Related to Anesthesia: None Noted
--- NOTE | 2019-02-19 11:43 | GOP ---
[f rep st] OPERATIVE REPORT DATE OF OPERATION: 02/19/2019 SURGEON: Armen Leung MD HOME DECORATOR: Joaquina Herzog NP ANESTHESIA: General. PREOPERATIVE DIAGNOSIS: 1. Left-sided sacroiliac joint dysfunction. 2. Treatment refractory to nonoperative intervention. POSTOPERATIVE DIAGNOSIS: 1. Left-sided sacroiliac joint dysfunction. 2. Treatment refractory to nonoperative intervention. PROCEDURE PERFORMED: 1. Left-sided minimally invasive sacroiliac joint fusion with 2 [employer]onic [place] devices filled with morselized autograft and allograft. 2. Use of intraoperative 3D Stealth navigation. 3. Use of intraoperative fluoroscopy, less than 1 hour physician time. 4. Use of neuromonitoring. FINDINGS: per imaging ESTIMATED BLOOD LOSS: 5 mL. INDICATIONS: The patient is a very pleasant 63-year-old who has undergone prior lumbar fusion by my partner, Dr. Cervantes. The patient presented with worsening sacroiliac joint dysfunction, which did not respond to conservative management. After discussion of risks, benefits, and alternatives, and after finding out prevention, we decided to proceed forth with surgery as described above. DESCRIPTION OF PROCEDURE: Patient was brought to the operating theater and underwent general endotracheal anesthesia without complications. She had Venodynes, MARLEE hose, and the appropriate lines placed by Anesthesia. She was then flipped prone onto the Owen table and all bony processes inspected and padded. The lower lumbar region, including the buttocks were then prepped and draped in the usual sterile surgical fashion. A time-out was completed per protocol, and the patient received antibiotics within 1 hour of incision. A small incision was marked over the right posterior superior iliac spine. This was infiltrated with Marcaine with epinephrine. The incision was then opened with a scalpel blade. We then placed the percutaneous pin for the 3D navigation system into the right posterior superior iliac spine. We completed a 3D Stealth navigation spin. Using 3D Stealth navigation, we picked our entry point that would give us the best approach to the left sacroiliac joint. This was marked as a vertical incision on the buttock. This was infiltrated with Marcaine with epinephrine and opened the scalpel blade. We then used the 3D Stealth navigation system to drill and tap 2 holes across the left sacroiliac joint. These were then measured and we placed two 50 mm Medtronic [place] screws filled with morselized autograft and allograft across the left-sided sacroiliac joint. Another 3D Stealth navigation spin demonstrated good placement of the hardware. The wounds were irrigated copiously with bacitracin irrigation and closed in multiple layers, including Vicryl sutures for the deep layers and Dermabond for skin. The patient's wounds were dressed sterilely. She was then flipped supine onto the transfer cart. She was awakened, extubated, and taken to recovery room in stable condition. There were no complications and no noted change on neuromonitoring throughout the procedure. COMPLICATIONS: None. /[id number]/MODL MTDD
[2019-02-19] MEDS: fentaNYL 100 MCG/2 ML INJ IVP PRN ×3 (11:44→12:06)
[2019-02-19] MEDS ORDERED: HYDROCODONE/APAP 5/325 TAB PO PRN (11:46)
[2019-02-19] MEDS ORDERED: ALBUTEROL 3 ML DEYVIAL IH PRN (11:46)
[2019-02-19] MEDS ORDERED: ACETAMINOPHEN 500 MG TAB PO PRN (11:46)
[2019-02-19] MEDS ORDERED: HYDROmorphONE/DILAUDID 1 MG/ML INJ IVP PRN (11:46)
[2019-02-19] MEDS ORDERED: ONDANSETRON 4 MG/2 ML VIAL IVP PRN (11:46)
[2019-02-19] MEDS ORDERED: oxyCODONE IR 5 MG TAB PO PRN (11:46)
[2019-02-19] MEDS ORDERED: NALOXONE HCL 0.4 MG/ML INJ IVP PRN (11:46)
[2019-02-19] MEDS ORDERED: oxyCODONE IR 5 MG TAB ONE (12:45)
[2019-02-19 13:17] VITALS: BP 132/68
== END 2019-02-19 13:19 | disposition home or self-care (01) ==
LOC: FSGY 08:06
PROVIDERS: ATTEND Neurological Surgery
PROC: 4A1004G Monitoring of Central Nervous Electrical Activity, Intraoperative, Open Approach (ICD-10-PCS; principal; 2019-02-19 09:45)
PROC: 8E0WXBF Computer Assisted Procedure of Trunk Region, With Fluoroscopy (ICD-10-PCS; principal; 2019-02-19 09:45)
PROC: 0SG804Z Fusion of Left Sacroiliac Joint with Internal Fixation Device, Open Approach (ICD-10-PCS; principal; 2019-02-19 09:45)
PROC: BR1D1ZZ Fluoroscopy of Sacroiliac Joints using Low Osmolar Contrast (ICD-10-PCS; 2019-02-19 09:45)
DX: M53.3 Sacrococcygeal disorders, not elsewhere classified (principal); G96.19 Other disorders of meninges, not elsewhere classified; E03.9 Hypothyroidism, unspecified; Z98.1 Arthrodesis status
CPT/HCPCS: C1713; J0690; J2250; J2704; J3010

== ENCOUNTER → 2019-03-11 | Outpatient (CLI) | payer OTHER | LOC: FIMAGING 13:17 | PROVIDERS: ATTEND Physician Assistant | DX: M53.3 Sacrococcygeal disorders, not elsewhere classified (principal); M43.16 Spondylolisthesis, lumbar region; M51.36 Other intervertebral disc degeneration, lumbar region; Z98.1 Arthrodesis status ==